=== PATIENT | male | born 1980 | race Caucasian/White ===

== ENCOUNTER 2019-06-29 | Emergency (ER) | payer OTHER ==
[~2019-06-29] MED LIST: ANAPROX275 MG OR; NO HOME MEDS; ULTRAM50 MG OR
[2019-06-29] MEDS ORDERED: BACTRIM DS1 TAB PO (09:01)
== END 2019-06-29 09:15 | disposition home or self-care (01) | DRG 605 ==
PROC: 0HQ0XZZ Repair Scalp Skin, External Approach (ICD-10-PCS; principal; 2019-06-29)
DX: S01.02XA Laceration with foreign body of scalp, initial encounter (principal); S09.12XA Laceration of muscle and tendon of head, initial encounter; F17.210 Nicotine dependence, cigarettes, uncomplicated; V53.5XXA Driver of pick-up truck or van injured in collision with car, pick-up truck or van in traffic accident, initial encounter